=== PATIENT | male | born 1965 | race Caucasian/White ===

== ENCOUNTER → 2018-01-08 | Outpatient (CLI) | payer OTHER ==
[~2018-01-08] MED LIST: OPTIRAY 320 IV PRN; PRLSR20 PO
--- NOTE | 2018-01-08 09:50 | DIAGNOSTIC IMAGING REPORT ---
CT (CHEST) THORAX WITH CLINICAL HISTORY: 52 years-old Male presenting with R91.1 Pulmonary nodule, follow-up. TECHNIQUE: Multidetector CT imaging of the chest was performed after the administration of intravenous contrast. IV contrast: 94 mL of Optiray 320. A dose lowering technique was used consistent with the principles of ALARA (as low as reasonably achievable). COMPARISON: 02/08/2017. CT DOSE (mGy.cm): The estimated cumulative dose is 463.87 mGy.cm. FINDINGS: [employer] Libr[employer] topogram: Unremarkable. On soft tissue windows, normal thyroid and thoracic inlet. No axillary, supraclavicular, hilar, or mediastinal lymphadenopathy. Normal aorta. Normal heart size. No pericardial or pleural effusion. Upper abdomen normal. On lung windows, trace apical predominant emphysema. Peripheral solid 4 mm right upper lobe nodule (series 4 image 96), unchanged. Central 2.2 cm solid nodule in the left upper lobe with coarse/popcorn internal calcification (series 4 image 120), unchanged and consistent with a benign nodule. This likely also contains fat, further suggesting pulmonary hamartoma. Solid peripheral 4 mm nodule in the superior segment of the lingula (series 4 image 175), unchanged. Solid 3 mm posterior apical left upper lobe nodule (series 4 image 94), unchanged. No new nodule. These have remained stable since 2015. Central airways patent. On bone windows, normal osseous structures. IMPRESSION: 1. Stable small solid pulmonary nodules, which are unchanged since 2015 consistent with benign etiologies. No new or suspicious pulmonary nodule. 2. Trace apical emphysema. Electronically signed by: Rubio Ballesteros M.D. 01/08/2018 9:49 AM Dictated Date/Time: 01/08/2018 9:41 AM
== END | disposition home or self-care (01) ==
LOC: C.CTS 09:24
PROVIDERS: ATTEND Physician Assistant
DX: R91.8 Other nonspecific abnormal finding of lung field (principal)

== ENCOUNTER 2018-01-18 16:21 | Emergency (ER) | payer OTHER ==
[~2018-01-18] VITALS: Ht 185.4 cm; Wt 97.1 kg
[~2018-01-18 16:21] MED LIST changes: -OPTIRAY 320 IV PRN
[2018-01-18 16:23] VITALS: TEMP 36.6; Ht 185.4 cm; Wt 97.1 kg
--- NOTE | 2018-01-18 17:44 | DIAGNOSTIC IMAGING REPORT ---
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 There is no acute fracture. 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 No radiopaque foreign body within the left thumb is noted. IMPRESSION: No acute fracture or radiopaque foreign body within the left thumb. Electronically signed by: Bob Mooney M.D. 01/18/2018 5:43 PM Dictated Date/Time: 01/18/2018 5:40 PM
[2018-01-18] MEDS ORDERED: PRLSR20 PO (17:55)
[2018-01-18] MEDS ORDERED: FLUT0.15 NAE (17:55)
--- NOTE | 2018-01-18 18:01 | EMERGENCY ROOM VISIT NOTE ---
ED Visit Note First contact with patient: 16:49 CHIEF COMPLAINT: Finger laceration HISTORY OF PRESENT ILLNESS: This 52-year-old male patient presents to the emergency department, ambulatory, approximately 1 and half hours after shooting a small 2 inch nail through the pad of the left thumb. The patient states the wound appeared to be relatively superficial, so he pulled the finger back after he noticed what happened. He states he did completely remove his finger from the nail, and believes the nail remained intact. He immediately washed the wound and control the bleeding with a wet paper towel for 20 minutes. He reports mild pain over the medial aspect of the PIP joint of the left thumb, but only with flexion of the thumb. The bleeding has stopped. Denies weakness or numbness of the finger. The patient has full range of motion of the fingers. The patient rates the pain as mild and 5/10. The patient denies any other injuries. He presents today to ensure there is no further injury or damage to the finger, and that the entire nail was removed successfully. The patient's tetanus shot is up to date. REVIEW OF SYSTEMS: A 6 system review of systems was completed with positives and pertinent negatives listed in the HPI. ALLERGIES: Bee stings MEDICATIONS: Prilosec PMH: GERD SOCIAL HISTORY: The patient lives locally with family. He denies drug, alcohol , tobacco use. PHYSICAL EXAM: Vital Signs: Reviewed Nurse's notes, vital signs stable. GENERAL : This is a 52-year-old white male, in no acute distress, well developed, well nourished. SKIN: There is a 0.4 cm long laceration on the medial aspect of the distal phalanx of the left first finger. The edges do not gape apart with traction. There is no foreign material in the wound and it looks clean. There is no active bleeding. No deep structures such as tendons, bones, or significant blood vessels are seen in the base of the wound. Extension and flexion of the finger is full and strong. Full range of motion of the wrist and other fingers. Capillary refill less than 2 seconds. Normal sensation to light and sharp touch. 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 There is no acute fracture. 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 No radiopaque foreign body within the left thumb is noted. IMPRESSION: No acute fracture or radiopaque foreign body within the left thumb. Electronically signed by: Bob Mooney M.D. 01/18/2018 5:43 PM Dictated Date/Time: 01/18/2018 5:40 PM EMERGENCY DEPARTMENT COURSE: I examined the patient. X-ray of the left thumb was performed and reviewed by myself and radiologist as above. No retained foreign body or bony abnormality. I discussed these findings with the patient at bedside. The wound was cleansed with Betadine, then copiously irrigated under pressure with sterile saline. The wound was explored and there were no deep structures injured. The area was cleaned with sterile saline and dressed with bacitracin ointment and bandage. The patient was discharged home in good condition. I attest that I have personally reviewed the patient's current medication list. Patient was found to have normal blood pressure on screening and does not require follow-up. Differential diagnosis includes laceration, contusion, fracture, sprain/strain, foreign body, tendon or ligament injury, neurovascular compromise, foreign body , assault, and others DIAGNOSIS: Puncture wound of left thumb The chart was completed utilizing [employer] voice recognition software. Grammatical errors, random word insertions, pronoun errors, and incomplete sentences are an occasional consequence of this system due to software limitations, ambient noise, and hardware issues. Any formal questions or concerns about the content, text, or information contained within the body of this dictation should be directly addressed to the provider for clarification. Current/Historical Medications Scheduled PRN Fluticasone Propionate (Nasal) (Flonase Allergy Relief), 2 SPRAYS PEDRO DAILY PRN for Allergy Symptoms Omeprazole (Prilosec), 20 MG PO DAILY PRN for Acid Reflux Allergies Coded Allergies: BEE STING (Verified Allergy, Unknown, ., 05/14/15) Vital Signs Date Time Temp Pulse Resp B/P (MAP) Pulse Ox O2 Delivery O2 Flow Rate FiO2 01/18/18 18:11 78 16 140/90 95 01/18/18 16:23 36.6 95 18 124/69 95 Room Air Departure Information Impression Primary Impression: Puncture wound of finger of left hand Dispostion Home / Self-Care Condition GOOD Referrals Dell Hernandez, D.O. (PCP) Patient Instructions ED Wound Puncture General, [facility] Additional Instructions You were seen in the emergency department today for a puncture wound of the left thumb. The nail had been successfully removed prior to arrival. X-ray did not reveal any retained foreign body or bony abnormality or injury. Proper wound care is essential for adequate wound healing and infection prevention. You can shower and clean the wound with soap and water. Do not scour over the wound, pat dry with a towel. Do not submerse the wound (i.e. bathe or dish wash) until the wound has fully healed. You can use an antibiotic ointment with a dressing over the wound for the next 3-4 days. After this time you may leave the wound dry and open to the air. Return to the emergency department or seek care by your PCP for any significant redness, purulent drainage, swelling, or increased pain. Ibuprofen(Motrin, Advil) may be used for fever or pain. Use 600mg every six hours as needed. Take with food. Avoid using more than 2400mg in a 24 hour period. Do not use 2400mg per day for more than three consecutive days without physician direction. Prolonged inappropriate use can lead to stomach upset or ulcers. (AND/OR) Acetaminophen(Tylenol) may be used for fever or pain. Use 1000mg every six to eight hours as needed. Avoid using more than 3000mg in a 24 hour period. Return to the emergency department for any concerns. Problem Qualifiers Primary Impression: Puncture wound of finger of left hand Encounter type: initial encounter Qualified Codes: S61.239A - Puncture wound without foreign body of unspecified finger without damage to nail, initial encounter
[2018-01-18 18:11] VITALS: BP 140/90; PULSE 78; O2SAT 95
== END 2018-01-18 18:12 | disposition home or self-care (01) ==
LOC: C.EDB 16:22 → C.EDD 18:12
DX: S61.032A Puncture wound without foreign body of left thumb without damage to nail, initial encounter (principal); W29.4XXA Contact with nail gun, initial encounter; K21.9 Gastro-esophageal reflux disease without esophagitis; Z91.030 Bee allergy status; Z79.899 Other long term (current) drug therapy